=== PATIENT | female | born 1980 ===

== ENCOUNTER 2018-03-07 16:14 | Emergency (ER) | payer OTHER ==
[2018-03-07 17:01] VITALS: RESP 16; TEMP 97.1
[2018-03-07 17:03] LABS: APPEARANCE,URINE Clear; BILIRUBIN,URINE NEGATIVE (NEGATIVE); COLOR,URINE Yellow; GLUCOSE, URINE (UA) 2+ (NEGATIVE); KETONES,URINE TRACE (NEGATIVE); LEUKOCYTE ESTERASE ,URINE NEGATIVE (NEGATIVE); NITRATE,URINE NEGATIVE (NEGATIVE); OCCULT BLOOD,URINE NEGATIVE (NEG-TRACE); UROBILINOGEN,URINE 0.2 (0.2-1.0 EU)
[2018-03-07 17:19] LABS: BACTERIA 1+ (< 1+); CRYSTALS NEGATIVE (0-3 AVE/HPF); RBC,URINE 0-2 (0-3AV/HPF)
[2018-03-07 17:52] VITALS: BP 127/86; PULSE 84; O2SAT 96
== END 2018-03-07 17:47 | disposition home or self-care (01) ==
LOC: ED 16:14
DX: R30.0 Dysuria (principal); L29.2 Pruritus vulvae; E11.9 Type 2 diabetes mellitus without complications
CPT/HCPCS: 81001; 99282

== ENCOUNTER 2018-10-15 15:25 | Emergency (ER) | payer BC, OTHER ==
[2018-10-15 15:46] VITALS: RESP 16; TEMP 98.3
[2018-10-15 16:36] LABS: BASOPHILS % (AUTO) 1 % (0-3); EOSINOPHILS % (AUTO) 0 % (0-9); HEMATOCRIT 45 % (35-47); HEMOGLOBIN 14.7 gm/dl (12.0-15.5); LYMPHOCYTES % (AUTO) 13.7 % (10-50); MEAN CORPUSCULAR HEMOGLOBIN 26.5 pg (27.0-32.0); MEAN CORPUSCULAR HGB CONC 32.4 gm/dl (32.0-36.0); MEAN CORPUSCULAR VOLUME 82 fL (81-99); MONOCYTES % (AUTO) 1.7 % (0-12)
[2018-10-15 16:40] LABS: CALCIUM 8.9 mg/dl (8.5-10.1); CARBON DIOXIDE 23.2 mEq/L (21-32); CREATININE 0.9 mg/dl (0.60-1.00); POTASSIUM 4.5 mMol/L (3.5-5.1)
[2018-10-15 17:09] VITALS: BP 132/76; PULSE 96; O2SAT 99
== END 2018-10-15 17:07 | disposition home or self-care (01) ==
LOC: ED 15:25
DX: R21 Rash and other nonspecific skin eruption (principal); E11.9 Type 2 diabetes mellitus without complications
CPT/HCPCS: 36415; 80048; 85025; 99282